=== PATIENT | male | born 1945 | race Caucasian/White ===

== ENCOUNTER 2018-04-03 21:06 | Emergency (ER) | payer OTHER ==
[~2018-04-03] VITALS: Ht 193 cm; Wt 88.5 kg
--- NOTE | ~2018-04-03 | EKG ---
[place] [address] [facility] [place] [employer] [address] ELECTROCARDIOGRAM REPORT Name: JANICECARIDAD MUÑOZ [facility] [id number] Admission: 04/03/18 Attend Phys: Discharge: 04/03/18 Date of : 43 Report #: [id number] THIS REPORT FOR: //name// [facility] ED Test Date: 2018-04-03 Test Time: 21:05:45 Pat Name: CARIDAD CAMACHO Department: Room: Gender: Operating Room Specialist: [facility] : 1945 Requested By: Jennifer Escobedo Order Number: [id number] MD: Aman Dang Measurements Intervals [place] Rate: 101 P: 70 DE: 177 QRS: 8 QRSD: 132 T: 25 QT: 392 QTc: 509 Interpretive Statements Sinus tachycardia Ventricular trigeminy Probable left atrial enlargement Right bundle branch block Compared to ECG 09/29/2010 17:43:54 Ventricular premature complex(es) now present Electronically Signed On 04-04-2018 17:18:33 CDT by Aman Dang [email or web address] <ELECTRONICALLY SIGNED> By: Aman Dang MD 04/04/18 1718 2104 04 Aman Dang MD /NAHUM
--- NOTE | ~2018-04-03 | EKG ---
[address] [address] ELECTROCARDIOGRAM REPORT Name: JANICECARIDAD [facility] [id number] Admission: 04/03/18 Attend Phys: Discharge: 04/03/18 Date of : 43 Report #: [id number] THIS REPORT FOR: //name// [facility] ED Test Date: 2018-04-03 Test Time: 22:14:38 Pat Name: CARIDAD CAMACHO Department: Room: Gender: [employer] Wellness Coordinator: MZOOK : 1945 Requested By: Jennifer Escobedo Order Number: [id number] MD: Aman Dang Measurements Intervals [place] Rate: 79 P: 59 FL: 203 QRS: 2 QRSD: 122 T: 29 QT: 387 QTc: 444 Interpretive Statements Sinus rhythm Right bundle branch block Compared to ECG 09/29/2010 17:43:54 Sinus arrhythmia no longer present Electronically Signed On 04-04-2018 17:19:28 CDT by Aman Dang [email or web address] <ELECTRONICALLY SIGNED> By: Aman Dang MD 04/04/18 1719 2214 2214 Aman Dang MD /NAHUM
[~2018-04-03 21:06] MED LIST: ADULT LOW DOSE81 MG PO; ATIVAN1 MG PO; BENICAR20 MG PO; CALCIUM 600 +1 EAC1 PO; FISH OIL 1,001000 MG PO; KLOR-CON 1010 MEQ PO; L-LYSINE500 M1 PO; LASIX 80 MG TAB80 MG PO; MECLIZINE 25 MG25 M1 PO; MULTIVITAMINS PO; OMEPRAZOLE20 M2 PO; TRIAMTERENE-HC1 EAC1 PO; TRICOR145 MG PO
[2018-04-03 21:49] LABS: ABSOLUTE NEUTROPHILS 2.8 thou/uL (1.4-8.2); BASOPHILS 0.6 % (0.0-2.0); EOSINOPHILS 3.8 % (0.0-3.0); HEMATOCRIT 43.1 % (42.0-52.0); HEMOGLOBIN 14.8 gm/dL (14.0-18.0); LYMPHOCYTES 38.2 % (24.0-44.0); MCH 32.2 pg (26.0-34.0); MCHC 34.2 g/dL (28.0-37.0); MCV 94.1 fL (80.0-100.0); MONOCYTES 6.4 % (1.0-8.0); PLATELET COUNT 225 thou/uL (150-400); RBC 4.58 mil/uL (4.50-6.00); RDW 12.9 % (10.5-14.5); WBC 5.6 thou/uL (4.0-11.0)
[2018-04-03 21:59] LABS: ANION GAP 10 mmol/L (7-16); BUN 20 mg/dL (7-18); CALCIUM 9.1 mg/dL (8.5-10.1); CHLORIDE 106 mmol/L (98-107); CO2 24 mmol/L (21-32); CREATININE 0.9 mg/dL (0.7-1.3); GLUCOSE 167 mg/dL (74-106); POTASSIUM 3.8 mmol/L (3.5-5.1); SODIUM 140 mmol/L (136-145)
[2018-04-03 22:08] LABS: ALBUMIN 3.8 g/dL (3.4-5.0); SGOT 32 U/L (15-37); SGPT 61 U/L (30-65); TOTAL BILIRUBIN 0.3 mg/dL (<0.1-1.0); TOTAL PROTEIN 7.3 g/dL (6.4-8.2); TROPONIN-I <0.06 ng/mL (<0.06)
[2018-04-03] MEDS ORDERED: METOPROLOL SUCC25 M1 PO (22:29)
[2018-04-03 22:35] VITALS: BP 141/79
== END 2018-04-03 22:36 | disposition home or self-care (01) ==
LOC: ER 21:06
PROVIDERS: Physician Assistant
DX: I49.9 Cardiac arrhythmia, unspecified (principal); R00.2 Palpitations; I10 Essential (primary) hypertension; E78.5 Hyperlipidemia, unspecified; F15.10 Other stimulant abuse, uncomplicated; N40.0 Benign prostatic hyperplasia without lower urinary tract symptoms

== ENCOUNTER → 2018-04-07 | Outpatient (CLI) | payer OTHER ==
[~2018-04-07] MED LIST changes: +METOPROLOL SUCC25 M1 PO
--- NOTE | ~2018-04-07 | EXE ---
[facility] [employer] [place] [address] STRESS ECHOCARDIOGRAM Name: JANICECARIDAD Room #: REG PANCHO Lee#: [id number] Admission: 04/07/18 Attend Phys: Royer Mcleod Discharge: Date of : 43 Date of Service: 04/07/18 1443 Report #: [id number] THIS REPORT FOR: //name// APPROVED REPORT Study performed: 04/07/2018 13:13:12 Exam: Stress Echocardiogram Indication: Palpitations , Chest pain Patient Location: Out-Patient Stress Nurse: Iqra Emmanuel RN Room #: Echo lab 2 Status: routine Ht: 6 ft 4 in HR: 84 bpm BP: 138/86 mmHg Medical History Medical History: Hyperlipidemia Exercise History: Indeterminate Procedure The patient underwent an Exercise Stress Test using the Derrick Protocol. Blood pressure, heart rate, and EKG were monitored. An Echocardiogram was performed by reliability technician in four stages in quad fashion. At peak stress, four selected images were obtained and placed side by side with resting images for comparison. Stress Test Details Stress Test: Exercise stress testing was performed using a Derrick protocol. HR Resting HR: 84 bpm Max Heart Rate (APMHR): 147 bpm Max HR Achieved: 146 bpm Target HR (85% APMHR): 124 bpm % of APMHR: 99 Recovery HR: 93 bpm HR response to stress: Normal HR response to stress BP Resting BP: 138/86 mmHg Max BP: 170/80 mmHg Recovery BP: 130/82 mmHg ECG [facility] [address] [place] [address] STRESS ECHOCARDIOGRAM Name: JANICECARIDAD MUÑOZ [facility] [id number] Admission: 04/07/18 Attend Phys: Royer Mcleod Discharge: Date of : 43 Date of Service: 04/07/18 1443 Report #: [id number] Clinical Reason for Termination: Maximal effort Stress Symptoms: Leg Fatigue Exercise duration: 6 min sec Highest Stage Achieved: Stage 2: 2.5 mph at 12% grade. Exercise capacity: 7.0 METs Overall Exercise Capacity for Age: Average Pre-Stress Echo The resting Echocardiogram showed normal left ventricular contractility with an estimated Ejection Fraction of about >55%. Post-Stress Echo The stress Echocardiogram showed normal left ventricular contractility with an estimated Ejection Fraction of about 65-70%. Clinical Normal augmentation of myocardial wall segments using a 17 segment model. Conclusion Clinical Response: Non-ischemic Exercise Capacity: Average Stress ECG Response: Non-ischemic Stress Echo Images: Non-ischemic No prior study available for comparison. Other Information Study Quality: Good <ELECTRONICALLY SIGNED> By: Maninder Lozano MD, FACC 04/07/18 1443 1443 1443 Maninder Lozano MD, FACC /INF
== END ==
LOC: CV 10:50
DX: I10 Essential (primary) hypertension (principal); R07.9 Chest pain, unspecified; R00.2 Palpitations; E78.5 Hyperlipidemia, unspecified

== ENCOUNTER → 2020-05-13 | Outpatient (CLI) | payer OTHER | LOC: SJCVC 08:19 → SJCVCIMAG 13:31 | PROVIDERS: ATTEND Internal Medicine Cardiovascular Disease | DX: I34.0 Nonrheumatic mitral (valve) insufficiency (principal); Z86.79 Personal history of other diseases of the circulatory system ==